=== PATIENT | male | born 1970 | race Caucasian/White ===

== ENCOUNTER 2023-04-20 07:30 | Emergency (ER) | payer OTHER, BC ==
[2023-04-20 07:43] VITALS: RESP 18; TEMP 98.6; BMI 34.0
[2023-04-20] MEDS ORDERED: DIPHTH,PERTUSS(ACELL),TET 0.5 ML DISP.SYRIN IM ONE ×2 (07:49→08:47)
[2023-04-20 09:11] VITALS: BP 149/109; PULSE 75
== END 2023-04-20 09:24 | disposition home or self-care (01) ==
LOC: FER 07:30
PROC: 0HQFXZZ Repair Right Hand Skin, External Approach (ICD-10-PCS; principal; 2023-04-20)
PROC: 3E0234Z Introduction of Serum, Toxoid and Vaccine into Muscle, Percutaneous Approach (ICD-10-PCS; 2023-04-20)
DX: S61.212A Laceration without foreign body of right middle finger without damage to nail, initial encounter (principal); W23.1XXA Caught, crushed, jammed, or pinched between stationary objects, initial encounter; Y99.0 Civilian activity done for income or pay
CPT/HCPCS: 73130-TC-RT-FY; 90715; 99283-25

== ENCOUNTER 2023-04-28 12:18 | Emergency (ER) | payer OTHER, BC ==
[2023-04-28 12:24] VITALS: BP 134/96; PULSE 74; RESP 15; TEMP 98.6; BMI 34.0
== END 2023-04-28 13:28 | disposition home or self-care (01) ==
LOC: FER 12:18
DX: Z48.02 Encounter for removal of sutures (principal)
CPT/HCPCS: 99281-25

== ENCOUNTER 2023-05-03 10:44 | Emergency (ER) | payer BC, OTHER ==
[2023-05-03 10:58] VITALS: BP 160/105; PULSE 74; RESP 15; TEMP 98.3; BMI 33.8
== END 2023-05-03 11:16 | disposition home or self-care (01) ==
LOC: FER 10:44
DX: Z48.02 Encounter for removal of sutures (principal)
CPT/HCPCS: 99281-25